=== PATIENT | female | born 1940 | race Caucasian/White ===

== ENCOUNTER 2021-06-29 19:15 | Emergency (ER) | payer MEDICARE ==
[~2021-06-29] VITALS: Ht 154.9 cm; Wt 90.7 kg
== END 2021-06-29 22:05 | disposition home or self-care (01) ==
LOC: ER 19:15
DX: S09.90XA Unspecified injury of head, initial encounter (principal); S51.011A Laceration without foreign body of right elbow, initial encounter; F17.210 Nicotine dependence, cigarettes, uncomplicated; W19.XXXA Unspecified fall, initial encounter
CPT/HCPCS: 70450; 73080; 90471; 90714; 99283-25